=== PATIENT | female | born 1965 | race African-American/Black ===

== ENCOUNTER 2021-02-08 19:37 | Emergency (ER) | payer OTHER ==
[~2021-02-08] VITALS: Ht 167.6 cm; Wt 71.0 kg
[2021-02-08] MEDS ORDERED: ONDANSETRON HCL 4MG/2ML INJ IV STA (22:56)
[2021-02-08] MEDS ORDERED: SODIUM CHLORIDE 0.9% 1000ML BAG (SEPSIS BOLUS) IV ONE (23:00)
[2021-02-08] MEDS ORDERED: PANTOPRAZOLE SODIUM 40 MG/VIAL IV ONE (23:15)
[2021-02-08] MEDS ORDERED: MORPHINE SULFATE 4 MG/ML CPJ (NOT FOR IM USE) IV ONE (23:15)
[2021-02-08 23:56] LABS: CLARITY URINE CLEAR (CLEAR); COLOR URINE YELLOW (YELLOW); KETONES URINE 4+ (NEGATIVE); LEUKOCYTE ESTERASE URINE TRACE (NEGATIVE); NITRITE URINE NEGATIVE (NEGATIVE); OCCULT BLOOD URINE NEGATIVE (NEGATIVE); PROTEIN URINE 2+ (NEGATIVE); SPECIFIC GRAVITY URINE 1.042 (1.005-1.030); UROBILINOGEN URINE 0.2 E.U./dL (0.2-1.0)
[2021-02-08 23:58] LABS: BASOPHILS % 0.1 % (0.0-2.0); HEMATOCRIT. 38.9 % (36.0-48.0); HEMOGLOBIN. 12.8 g/dL (12.0-16.0); LYMPHOCYTES % 7.1 % (20.0-50.0); MEAN CORPUSCULAR HEMOGLOBIN 28.5 pg (28.0-32.0); MEAN CORPUSCULAR VOLUME 86.8 fL (81.0-99.0); MEAN PLATELET VOLUME 9.5 fl (7.4-10.4); MONOCYTES % 6.7 % (2.0-8.0); NEUTROPHILS % 86.1 % (40.0-76.0); PLATELET 287 x1000/uL (130-400); RED BLOOD CELL COUNT 4.48 mill/uL (4.2-5.4); RED CELL DISTRIBUTION WIDTH 15.3 % (11.6-14.6)
[2021-02-09] LABS: CHLORIDE 104 mEq/L (98-107)
[2021-02-09 00:04] LABS: HCG SCREEN NEGATIVE
[2021-02-09] MEDS ORDERED: PROCHLORPERAZINE 10MG/2ML VIAL IM ONE (03:00)
[2021-02-09] MEDS ORDERED: ONDA4TAB5 MT (03:41)
[2021-02-09] MEDS ORDERED: DICY10CA88 MT (03:41)
[2021-02-09 06:40] VITALS: BP 156/72
== END 2021-02-09 06:59 | disposition home or self-care (01) ==
LOC: ER 19:37
DX: R10.13 Epigastric pain (principal); R11.2 Nausea with vomiting, unspecified; D72.829 Elevated white blood cell count, unspecified; E11.9 Type 2 diabetes mellitus without complications
CPT/HCPCS: 36415; 71045; 74176; 80053; 81003; 82962; 83605; 83690; 84145; 84703; 85025; 85610; 87040; 87086; 93005; 96361; 96372; 96374; 96375; 99285; C9113; J0780; J2270; J2405; J7030; Z7610